=== PATIENT | male | born 1990 | race Caucasian/White ===

== ENCOUNTER 2020-10-01 09:13 | Emergency (ER) | payer BC, OTHER ==
[2020-10-01] MEDS ORDERED: ACETAMINOPHEN 500 MG TABLET (FP) PO ONE (09:21)
[2020-10-01] MEDS ORDERED: CYCLOBENZAPRINE HCL 10 MG TABLET (FP) PO ONE (09:21)
[2020-10-01 09:22] VITALS: TEMP 98; BMI 21.7
[2020-10-01] MEDS ORDERED: LIDOCAINE 5% TOPICAL PATCH TP ONE (09:22)
[2020-10-01] MEDS ORDERED: ACETAMINOPHEN 500 MG TABLET (FP) ONE (09:23)
[2020-10-01] MEDS ORDERED: CYCLOBENZAPRINE HCL 10 MG TABLET (FP) ONE (09:23)
[2020-10-01] MEDS ORDERED: LIDOCAINE 5% TOPICAL PATCH ONE (09:24)
[2020-10-01] MEDS ORDERED: KETOROLAC TROMETHAMINE 60 MG/2 ML VIAL IM ONE (09:41)
[2020-10-01] MEDS ORDERED: KETOROLAC TROMETHAMINE 30 MG/1 ML VIAL ONE ×2 (09:42→09:46)
[2020-10-01] MEDS ORDERED: LIDOCAINE HCL 1%, 10 MG/ML (20ML VIAL) ONE (09:42)
[2020-10-01] MEDS ORDERED: diazePAM 5 MG TABLET PO ONE (10:45)
[2020-10-01] MEDS ORDERED: diazePAM 5 MG TABLET ONE (10:46)
[2020-10-01 11:59] VITALS: BP 140/80; PULSE 68
[2020-10-01] MEDS ORDERED: LIDOCAINE PATCH REMOVAL MC SCH (22:00)
== END 2020-10-01 12:21 | disposition home or self-care (01) ==
LOC: FER 09:13
PROC: 3E0233Z Introduction of Anti-inflammatory into Muscle, Percutaneous Approach (ICD-10-PCS; principal; 2020-10-01)
DX: M62.838 Other muscle spasm (principal)
CPT/HCPCS: 99284-25

== ENCOUNTER 2022-07-16 03:17 | Emergency (ER) | payer BC ==
[2022-07-16 03:25] VITALS: BP 139/86; PULSE 96; RESP 17; TEMP 98.2; BMI 21.8
== END 2022-07-16 04:30 | disposition home or self-care (01) ==
LOC: FER 03:17
DX: F10.129 Alcohol abuse with intoxication, unspecified (principal); Y90.9 Presence of alcohol in blood, level not specified
CPT/HCPCS: 99283-25